=== PATIENT | male | born 1970 | race African-American/Black ===

== ENCOUNTER 2021-02-10 08:00 | Day surgery (SDC) | payer OTHER ==
[2021-02-06 08:34] VITALS: BMI 33.5
[2021-02-10] MEDS ORDERED: LIDOCAINE HCL/PF 2% SDV 5ML VIAL ONE (08:56)
[2021-02-10] MEDS ORDERED: PROPOFOL 20 ML ONE ×4 (08:56)
[2021-02-10 09:34] VITALS: TEMP 97
[2021-02-10 10:00] VITALS: BP 130/74; PULSE 70
== END 2021-02-10 09:50 | disposition home or self-care (01) ==
LOC: FASU-ENDO 08:00
PROVIDERS: ATTEND Internal Medicine Gastroenterology
PROC: 0DBN8ZX Excision of Sigmoid Colon, Via Natural or Artificial Opening Endoscopic, Diagnostic (ICD-10-PCS; principal; 2021-02-10 09:04)
DX: Z12.11 Encounter for screening for malignant neoplasm of colon (principal); K63.5 Polyp of colon
CPT/HCPCS: 88305-TC